=== PATIENT | female | born 1930 | race Caucasian/White ===

== ENCOUNTER → 2017-09-01 | Outpatient (CLI) | payer MEDICARE, OTHER ==
--- NOTE | 2017-09-01 13:37 | WOMENS IMAGING REPORT ---
EXAM DESCRIPTION: 3D SCREENING MAMMO BILAT COMPLETED DATE/TIME: 09/01/2017 9:27 am REASON FOR STUDY: SCREENING MAMMO Z12.31 ENCNTR SCREEN MAMMOGRAM FOR MALIGNANT NEOPLASM OF PEGGY COMPARISON: 2013 to 2015 TECHNIQUE: Standard craniocaudal and mediolateral oblique views of each breast recorded using digita l acquisition and breast tomosynthesis. LIMITATIONS: None. FINDINGS: No masses, calcifications or architectural distortion. No areas of suspicion. Read with the assistance of CAD. .[facility] - R2 Cenova Version 1.3 .[facility] - R2 Cenova Version 1.3 .[facility] - R2 Cenova Version 2.4 .[facility]2 Cenova Version 2.4 .[facility] - R2 Business Intelligence Reporting Analyst Version 9.2 IMPRESSION: NORMAL MAMMOGRAM. BIRADS 1. BREAST DENSITY: b. There are scattered areas of fibroglandular density. BIRAD: 1 NEGATIVE RECOMMENDATION: ROUTINE SCREENING COMMENT: The patient has been notified of the results by letter per [place] requirements. Additional no tification policies are in place for contacting patient with suspicious or incomplete findings. Quality ID #[id number]: The [employer] recommends an annual screening mammogram for women aged 40 years or over. This facility utilizes a reminder system to ensure that all patients receive reminder letters, and/or direct phone calls for appointments. This includes reminders for routine scr eening mammograms, diagnostic mammograms, or other Breast Imaging Interventions when appropriate. Th is patient will be placed in the appropriate reminder system. The [employer] [place] [employer] (ACR) has developed recommendations for screening MRI of the breast s in certain patient populations, to be used in conjunction with mammography. Breast MRI surveillanc e may be appropriate for women with more than 20% lifetime risk of developing breast cancer as deter mined by genetic testing, significant family history of the disease, or history of mantle radiation f or Hodgkins Disease. ACR Practice Guidelines 2008. DBT Technology DBT is a type of tomographic mammography. With conventional mammography, overlapping breast tissue ma y make lesions difficult to detect, even with good compression. DBT uses an x-ray tube that rotates a round the breast, taking images at different angles. These images are then combined to create thin sl ices of the breast that the radiologist can view as a 3D reconstruction. The [employer] unit can perform full-field digital mammograms (2D imaging); or DBT (3D imaging); or both, in a combination mode that quickly performs both the mammogram and the tomosynthesis scan while the breast is still compressed. PQRS 6045F: Fluoroscopic imaging is not utilized for breast tomosynthesis. TECHNICAL DOCUMENTATION: FINDING NUMBER: (1) ASSESSMENT: (1) JOB ID: [id number] [employer]- All Rights Reserved
== END ==
LOC: WI 08:55
PROVIDERS: ATTEND Internal Medicine
DX: Z12.31 Encounter for screening mammogram for malignant neoplasm of breast (principal)
CPT/HCPCS: 77063; G0202; 77067

== ENCOUNTER 2018-01-14 18:16 | Emergency (ER) | payer MEDICARE, OTHER ==
[2018-01-14 18:41] LABS: ABSOLUTE EOSINOPHILS # (AUTO) 0.2 10^3/uL (0.0-0.6); ABSOLUTE LYMPHOCYTES (AUTO) 2.2 10^3/uL (0.5-4.7); ABSOLUTE MONOCYTES (AUTO) 0.8 10^3/uL (0.1-1.4); ABSOLUTE NEUT (AUTO) 4.1 10^3/uL (1.7-8.2); BASOPHILS % (AUTO) 0.3 % (0-2); EOSINOPHILS % (AUTO) 2.8 % (0-6); HEMATOCRIT 37.5 % (36.0-47.0); HEMOGLOBIN 12.4 g/dL (12.0-15.5); MEAN CORPUSCULAR HEMOGLOBIN 28.2 pg (27.0-33.4); MEAN CORPUSCULAR VOLUME 85 fl (80-97); MONOCYTES % (AUTO) 10.6 % (3-13); PLATELET COUNT 263 10^3/uL (150-450); RED BLOOD COUNT 4.39 10^6/uL (3.72-5.28); RED CELL DISTRIBUTION WIDTH 14.2 % (11.5-14.0); SEGMENTED NEUTROPHILS % (AUTO) 56.3 % (42-78); TOTAL CELLS COUNTED % (AUTO) 100 %; WHITE BLOOD COUNT 7.2 10^3/uL (4.0-10.5)
--- NOTE | 2018-01-14 19:18 | ER Document Report ---
ED General - General Chief Complaint: General Weakness Stated Complaint: GENERAL WEAKNESS Time Seen by Provider: 01/14/18 18:30 Notes: Patient is an 87-year-old female with medical history as recorded who presents with 12 hours of generalized weakness. Patient states that she just feels somewhat weak and fatigued. She was worried something was wrong with her pacemaker. She denies any focal symptoms. Nothing seems to improve or worsen her symptoms. She denies a history of similar symptoms in the past. She has not seen her primary care doctor regarding today's concerns. She denies any recent medication adjustments. She states that she has been eating and drinking without difficulty. She specifically denies any chest pain, shortness of breath, abdominal pain, nausea, vomiting, diarrhea, focal weakness or numbness, headache, or neck pain. TRAVEL OUTSIDE OF THE [place] IN LAST 30 DAYS: No - HPI Onset: This morning Onset/Duration: Gradual Quality of pain: No pain Severity: None Pain Level: Denies Associated symptoms: Weakness Exacerbated by: Denies Relieved by: Denies Similar symptoms previously: No Recently seen / treated by doctor: No - Related Data Allergies/Adverse Reactions: No Known Allergies Allergy (Verified 01/09/14 13:24) Past Medical History - General Information source: Patient - Social History Smoking Status: Never Smoker Frequency of alcohol use: None Drug Abuse: None Lives with: Alone Family History: Reviewed & Not Pertinent Patient has suicidal ideation: No Patient has homicidal ideation: No - Past Medical History Cardiac Medical History: Reports: Hx Hypertension Endocrine Medical History: Reports: Hx Hypothyroidism Renal/ Medical History: Denies: Hx Peritoneal Dialysis Musculoskeltal Medical History: Reports Hx Arthritis Past Surgical History: Reports: Hx Hysterectomy - Immunizations Hx Diphtheria, Pertussis, Tetanus Vaccination: Yes - 11 years ago Hx Pneumococcal Vaccination: 09/04/09 Review of Systems - Review of Systems Notes: Constitutional: Negative for fever. HENT: Negative for sore throat. Eyes: Negative for visual changes. Cardiovascular: Negative for chest pain. Respiratory: Negative for shortness of breath. Gastrointestinal: Negative for abdominal pain, vomiting or diarrhea. Genitourinary: Negative for dysuria. Musculoskeletal: Negative for back pain. Skin: Negative for rash. Neurological: Negative for headaches, weakness or numbness. 10 point ROS negative except as marked above and in HPI. Physical Exam - Vital signs Vitals: Pulse BP 95 144/74 H 01/14/18 18:26 01/14/18 18:26 Interpretation: Hypertensive Notes: PHYSICAL EXAMINATION: GENERAL: Well-appearing, well-nourished and in no acute distress. HEAD: Atraumatic, normocephalic. EYES: Pupils equal round and reactive to light, extraocular movements intact, sclera anicteric, conjunctiva are normal. ENT: nares patent, oropharynx clear without exudates. Moist mucous membranes. NECK: Normal range of motion, supple without lymphadenopathy LUNGS: Breath sounds clear to auscultation bilaterally and equal. No wheezes rales or rhonchi. HEART: Regular rate and rhythm without murmurs ABDOMEN: Soft, nontender, normoactive bowel sounds. No guarding, no rebound. No masses appreciated. EXTREMITIES: Normal range of motion, no pitting or edema. No cyanosis. NEUROLOGICAL: Face symmetric. Tongue protrudes midline. Extraocular motions intact. Pupils are 2 mm and equally reactive. Normal speech, normal gait. 5 out of 5 strength in both the distal and proximal upper and lower extremities bilaterally. Sensation is grossly intact throughout. Finger to nose testing normal. Pronator drift normal. PSYCH: Normal mood, normal affect. SKIN: Warm, Dry, normal turgor, no rashes or lesions noted. Course - Re-evaluation Re-evalutation: 01/14/18 19:17 Presentation and an overall well-appearing patient in no acute distress who complains of generalized weakness. At time of evaluation, patient's vitals are within normal limits and they are denying any additional acute complaints. Physical examination without focal findings. No neurologic deficits. They deny any chest pain, shortness of breath, nausea, vomiting, or diarrhea. No dysuria or fever. Basic laboratories including and urinalysis are unremarkable. Troponin is also negative. Low clinical suspicion for ACS, occult pneumonia, acute intra-abdominal pathology, stroke, or transient ischemic attack based on clinical history, examination, and laboratories. They have tolerated oral intake without difficulty. I have discussed the importance of close outpatient follow-up as well as the need to return to emergency room immediately should they have any new or worsening symptoms. The patient and surrogate's are in agreement with this plan and verbalized indications for return to emergency department. - Vital Signs Vital signs: Temp Pulse Resp BP Pulse Ox 98.0 F 86 18 121/73 98 01/14/18 20:43 01/14/18 18:34 01/14/18 20:43 01/14/18 20:43 01/14/18 20:43 - Laboratory Result Diagrams: 01/14/18 18:20 01/14/18 19:15 Laboratory results interpreted by me: 01/14/18 01/14/18 01/14/18 18:20 19:15 19:49 RDW 14.2 H Creatine Kinase 151 H Total Protein 6.0 L Ur Leukocyte Esterase TRACE H - Diagnostic Test Radiology reviewed: Image reviewed, Reports reviewed Radiology results interpreted by me: 01/15/18 04:03 Chest x-ray: No acute infiltrate - EKG Interpretation by Me Additional EKG results interpreted by me: 01/15/18 04:03 Atrially sensed ventricularly paced rhythm. Rate 69. Discharge - Discharge Clinical Impression: Weakness Fatigue Qualifiers: Fatigue type: unspecified Qualified Code(s): R53.83 - Other fatigue Condition: Good Disposition: HOME, SELF-CARE Additional Instructions: Your labs, chest x-ray, and EKG are all normal today. The exact cause of your feelings of weakness is uncertain at this time but does not appear to be from a life-threatening cause. Please follow-up with your general doctor within the next 1-2 days. Please return to the emergency room immediately if you experience any concerning symptoms including high fevers, severe headache, chest pain, difficulty breathing, abdominal pain, slurred speech, numbness or weakness in your arms or legs, or any other symptom that concerns you. Referrals: STACY PHAN MD [Primary Care Provider] - Follow up in 3-5 days
[2018-01-14 19:52] LABS: ALANINE AMINOTRANSFERASE 31 U/L (9-52); ALBUMIN 3.6 g/dL (3.5-5.0); ALKALINE PHOSPHATASE 61 U/L (38-126); ANION GAP 7 (5-19); ASPARTATE AMINO TRANSFERASE 31 U/L (14-36); BILIRUBIN,DIRECT 0.2 mg/dL (0.0-0.4); BILIRUBIN,TOTAL 0.2 mg/dL (0.2-1.3); BLOOD UREA NITROGEN 19 mg/dL (7-20); CALCIUM 9.2 mg/dL (8.4-10.2); CARBON DIOXIDE 29 mmol/L (22-30); CHLORIDE 106 mmol/L (98-107); CREATINE KINASE 151 U/L (30-135); GLUCOSE 93 mg/dL (75-110); POTASSIUM 4.3 mmol/L (3.6-5.0); SODIUM 141.6 mmol/L (137-145)
[2018-01-14 20:03] LABS: CREATINE KINASE MB 1.65 ng/mL (<4.55)
[2018-01-14 20:06] LABS: TROPONIN I < 0.012 ng/mL
--- NOTE | 2018-01-14 20:06 | RADIOLOGY REPORT (SQ) ---
EXAM DESCRIPTION: CHEST SINGLE VIEW COMPLETED DATE/TIME: 01/14/2018 7:37 pm REASON FOR STUDY: cough, weakness COMPARISON: Chest x-ray 10/07/2015. EXAM PARAMETERS: NUMBER OF VIEWS: One view. TECHNIQUE: Single frontal radiographic view of the chest acquired. RADIATION DOSE: NA LIMITATIONS: None. FINDINGS: LUNGS AND PLEURA: No consolidation, pneumothorax or pleural effusion. MEDIASTINUM AND HILAR STRUCTURES: No masses. Contour normal. HEART AND VASCULAR STRUCTURES: Heart normal in size. Normal vasculature. BONES: No acute findings. HARDWARE: There is a left-sided pacemaker. OTHER: There is a moderate size hiatal hernia. IMPRESSION: Moderate hiatal hernia. Otherwise, no acute radiographic finding in the chest. TECHNICAL DOCUMENTATION: JOB ID: [id number] 2010 [employer]- All Rights Reserved Reading location - IP/workstation name: [email or web address]
[2018-01-14 20:11] LABS: APPEARANCE,URINE CLEAR; BILIRUBIN,URINE NEGATIVE (NEGATIVE); COLOR,URINE YELLOW; GLUCOSE, URINE NEGATIVE (NEGATIVE); KETONES,URINE NEGATIVE (NEGATIVE); LEUKOCYTE ESTERASE,URINE TRACE (NEGATIVE); NITRITE,URINE NEGATIVE (NEGATIVE); PROTEIN,URINE NEGATIVE (NEGATIVE); URINE SPECIFIC GRAVITY 1.017; UROBILINOGEN,URINE NEGATIVE mg/dL (<2.0)
[2018-01-14 20:50] VITALS: BP 121/73
--- NOTE | 2018-01-14 22:10 | EKG REPORT ---
SEVERITY:- ABNORMAL ECG - ATRIAL-SENSED VENTRICULAR-PACED RHYTHM : Confirmed by: Derrell Mccoy MD 14-Jan-2018 22:08:37
== END 2018-01-14 20:50 | disposition home or self-care (01) ==
LOC: ER 18:16
DX: R53.1 Weakness (principal); R53.83 Other fatigue; I10 Essential (primary) hypertension; E03.9 Hypothyroidism, unspecified; Z90.710 Acquired absence of both cervix and uterus
CPT/HCPCS: 36415; 71045; 80053; 81001; 82550; 82553; 84484; 85025; 93005; 93010; 99285